=== PATIENT | male | born 1970 | race Hispanic/Latino ===

== ENCOUNTER 2017-03-29 13:47 | Inpatient (IN) | payer MEDICAID, OTHER ==
[2017-03-29 13:55] VITALS: BMI 21.2
--- NOTE | 2017-03-29 14:25 | RAD ---
HISTORY: chest pain COMPARISON: No prior. FINDINGS: LUNGS: No active pulmonary disease. PLEURA: No significant pleural effusion identified, no pneumothorax apparent. CARDIOVASCULAR: Normal. OSSEOUS STRUCTURES: No significant abnormalities. VISUALIZED UPPER ABDOMEN: Normal. OTHER FINDINGS: None. IMPRESSION: No active disease.
[2017-03-29 14:27] LABS: BASO # 0.04 K/mm3 (0.0-2.0); BASO % 0.4 % (0.0-3.0); EOS # 0.1 (0.0-0.7); GRAN # 7.06 (1.4-6.5); GRAN % 62.5 % (50.0-68.0); HEMOGLOBIN 17.7 gm/dL (14.0-18.0); LYMPH # 2.8 (1.2-3.4); LYMPH % 25.1 % (22.0-35.0); MEAN CELL VOLUME 96.5 fL (80.0-105.0); MEAN CORPUSCULAR HEMOGLOBIN 34.3 pg (25.0-35.0); MEAN CORPUSCULAR HGB CONC 35.5 g/dl (31.0-37.0); MEAN PLATELET VOLUME 10.4 fl (7.0-11.0); MONO # 1.2 (0.1-0.6); PLATELET COUNT 181 10^3/uL (120.0-450.0); RBC 5.16 10^6/uL (3.5-6.1); WHITE BLOOD COUNT 11.3 10^3/ul (4.5-11.0)
[2017-03-29 14:37] LABS: ALB/GLOB RATIO 1.2 (1.1-1.8); ALBUMIN 4.4 g/dL (3.0-4.8); ALT/SGPT 34 U/L (7-56); AST/SGOT 51 U/L (15-59); BLOOD UREA NITROGEN 9 mg/dL (7-21); CALCIUM 9.7 mg/dL (8.4-10.5); GFR AFRICAN-AMERICAN > 60; GFR NON-AFRICAN AMERICAN > 60; INR 0.96 (0.93-1.08); PARTIAL THROMBOPLASTIN TIME 27.3 Seconds (23.7-30.8); PROTHROMBIN TIME 10.4 Seconds (9.9-11.8)
--- NOTE | 2017-03-29 14:51 | ED PDOC ---
Arrival/HPI - General Chief Complaint: Chest Pain Time Seen by Provider: 03/29/17 13:55 Historian: Patient - History of Present Illness Narrative History of Present Illness (Text): 03/29/17 14:47 A 47 year old male, who denies any past medical history, presents to the emergency department complaining of non-radiating intermittent left sided chest pain for 1 week. Patient reports while visiting someone in the hospital he started to experience the same pain. He took 4 baby aspirin with no relief so came into the emergency room for further evaluation. Patient denies any fever, chills, nausea, vomiting, diarrhea, abdominal pain, shortness of breath or any other complaints. Patient has a smoking history, no cardiac history. Time/Duration: 1 week Symptom Course: Intermittent Quality: Other Context: Home Past Medical History - Provider Review Nursing Documentation Reviewed: Yes - Psychiatric Hx Substance Use: No - Surgical History Other/Comment: jaw surgery - Anesthesia Hx Anesthesia: Yes Hx Anesthesia Reactions: No Hx Malignant Hyperthermia: No Family/Social History - Physician Review Nursing Documentation Reviewed: Yes Family/Social History: No Known Family HX Smoking Status: Heavy Smoker > 10 Cigarettes Daily Hx Alcohol Use: Yes Frequency of alcohol use: Few days per week Hx Substance Use: No Allergies/Home Meds Allergies/Adverse Reactions: Allergies No Known Allergies Allergy (Verified 03/29/17 13:55) Home Medications: Home Meds Medication Instructions Recorded Confirmed Aspirin [Aspirin Chewable] 81 mg PO DAILY 03/29/17 03/29/17 Review of Systems - Physician Review All systems were reviewed & negative as marked: Yes - Review of Systems Constitutional: absent: Fevers, Night Sweats Respiratory: absent: SOB Cardiovascular: Chest Pain Gastrointestinal: absent: Abdominal Pain, Diarrhea, Nausea, Vomiting Physical Exam Vital Signs Reviewed: Yes Vital Signs Temp Pulse Resp BP Pulse Ox 03/29/17 13:55 98.2 F 77 18 135/91 H 98 Temperature: Afebrile Blood Pressure: Hypertensive Pulse: Regular Respiratory Rate: Normal Appearance: Positive for: Well-Appearing, Non-Toxic, Comfortable Pain Distress: None Mental Status: Positive for: Alert and Oriented X 3 - Systems Exam Head: Present: Atraumatic, Normocephalic Pupils: Present: PERRL Extroacular Muscles: Present: EOMI Conjunctiva: Present: Normal Mouth: Present: Moist Mucous Membranes Neck: Present: Normal Range of Motion Respiratory/Chest: Present: Clear to Auscultation, Good Air Exchange. No: Respiratory Distress, Accessory Muscle Use Cardiovascular: Present: Regular Rate and Rhythm, Normal S1, S2. No: Murmurs Abdomen: Present: Normal Bowel Sounds. No: Tenderness, Distention, Peritoneal Signs Back: Present: Normal Inspection Upper Extremity: Present: Normal Inspection. No: Cyanosis, Edema Lower Extremity: Present: Normal Inspection. No: Edema Neurological: Present: GCS=15, CN II-XII Intact, Speech Normal Skin: Present: Warm, Dry, Normal Color. No: Rashes Psychiatric: Present: Alert, Oriented x 3, Normal Insight, Normal Concentration Medical Decision Making ED Course and Treatment: 03/29/17 14:47 Impression: A 47 year old male with non-radiating intermittent left sided chest pain. Plan: -- Chest xray -- EKG -- Labs -- Urinalysis -- Reassess and disposition Progress Notes: EKG shows NSR at 71 BPM with normal axis, normal intervals, questionable ST- segment elevation in lead III. Interpreted by me. Case discussed with inspector final assembly mechanical, Dr. Quiroga, at 14:02. An electronic copy of patients EKG sent to Dr. Quiroga, who agrees no STEMI. Report Date : 03/29/2017 14:23:51 Procedure: Chest xray Dictator : Yeison Quiroga MD IMPRESSION: No active disease. - Lab Interpretations Lab Results: 03/29/17 14:00 03/29/17 14:00 Lab Results 03/29/17 15:30: Blood Type A POSITIVE, Antibody Screen Negative, BBK History Checked No verified bt 03/29/17 14:00: Sodium 138, Potassium 4.3, Chloride 103, Carbon Dioxide 25, Anion Gap 14, BUN 9, Creatinine 0.8, Est GFR ( Amer) > 60, Est GFR (Non- Af Amer) > 60, Random Glucose 110, Calcium 9.7, Magnesium 2.0, Total Bilirubin 0.6, AST 51, ALT 34, Alkaline Phosphatase 49, Lactate Dehydrogenase 467, Total Creatine Kinase 260 H, CK-MB (CK-2) 13.6 H, CK-MB (CK-2) % 5.2 H, Troponin I 1.09 H*, Total Protein 8.2, Albumin 4.4, Globulin 3.8, Albumin/Globulin Ratio 1.2 03/29/17 14:00: PT 10.4, INR 0.96, APTT 27.3 03/29/17 14:00: WBC 11.3 H, RBC 5.16, Hgb 17.7, Hct 49.8, MCV 96.5, MCH 34.3, MCHC 35.5, RDW 13.0, Plt Count 181, MPV 10.4, Gran % 62.5, Lymph % (Auto) 25.1, Woodward % (Auto) 11.0 H, Eos % (Auto) 1.0 L, Baso % (Auto) 0.4, Gran # 7.06 H, Lymph # 2.8, Woodward # 1.2 H, Eos # 0.1, Baso # 0.04 I have reviewed the lab results: Yes - RAD Interpretation Radiology Orders: 03/29/17 13:58 CHEST PORTABLE [RAD] Stat - Medication Orders Current Medication Orders: Alprazolam (Xanax) 0.25 mg PO BID PRN PRN Reason: Anxiety Stop: 04/05/17 17:01 Aspirin (Ecotrin) 81 mg PO DAILY [facility] Atorvastatin Calcium (Lipitor) 80 mg PO DIN [facility] Last Admin: 03/29/17 17:53 Dose: 80 mg Carvedilol (Coreg) 3.125 mg PO BID [facility] Last Admin: 03/29/17 17:58 Dose: 3.125 mg Clopidogrel Bisulfate (Plavix) 75 mg PO DAILY [facility] Docusate Sodium (Colace) 100 mg PO BID [facility] Last Admin: 03/29/17 17:53 Dose: 100 mg Sodium Chloride (Sodium Chloride 0.9%) 1,000 mls @ 100 mls/hr IV .Q10H [facility] Stop: 03/30/17 03:00 Last Admin: 03/29/17 17:24 Dose: 100 mls/hr Lorazepam (Ativan) 1 mg IVP Q3 PRN; Protocol PRN Reason: Anxiety Ondansetron HCl (Zofran Inj) 4 mg IV ONCE PRN PRN Reason: Nausea/Vomiting Ramipril (Altace) 1.25 mg PO DAILY [facility] Zolpidem Tartrate (Ambien) 5 mg PO HS PRN PRN Reason: Insomnia Discontinued Medications Atropine Sulfate (Atropine) Confirm Administered Dose 1 mg .ROUTE .STK-MED ONE Stop: 03/29/17 16:36 Last Admin: 03/29/17 16:35 Dose: 0.5 mg Comments: IV per Dr. Quiroga Clopidogrel Bisulfate (Plavix) 600 mg PO STAT STA Stop: 03/29/17 15:22 Last Admin: 03/29/17 15:24 Dose: 600 mg Eptifibatide (Integrilin Bolus) Confirm Administered Dose 40 mg IVP .STK-MED ONE Stop: 03/29/17 16:24 Last Admin: 03/29/17 16:24 Dose: 27.2 mg Comments: IV per Dr. Quiroga. 13.6 mg/6.8 ml x 2 doses. 1st bolus @ 1624. 2nd bolus @ 1634 Fentanyl (Fentanyl) Confirm Administered Dose 100 mcg .ROUTE .STK-MED ONE Stop: 03/29/17 16:05 Last Admin: 03/29/17 16:12 Dose: 100 mcg Comments: IV. 50 mcg @ [address] Quiroga. 50 mcg @ [address] Quiroga Heparin Sodium (Porcine) (Heparin) Confirm Administered Dose 10,000 units .ROUTE .STK-MED ONE Stop: 03/29/17 15:38 Last Admin: 03/29/17 16:19 Dose: 3,500 units Comments: [address] Quiroga @ 1619. [address] Quiroga @ 1624 Nitroglycerin/Dextrose (Nitroglycerin 50 Mg/250 Ml D5w) Confirm Administered Dose 50 mg in 250 mls @ ud IV .STK-MED ONE Stop: 03/29/17 15:39 Last Admin: 03/29/17 16:19 Dose: 0.2 mg Comments: IA by Dr. Quiroga Heparin Sodium (Porcine) (Heparin 1000 Units/500 Ml Ns) Confirm Administered Dose 1,500 mls @ ud IV .STK-MED ONE Stop: 03/29/17 15:39 Iohexol (Omnipaque 350 150 Ml) Confirm Administered Dose 150 ml .ROUTE .STK-MED ONE Stop: 03/29/17 15:38 Last Admin: 03/29/17 16:17 Dose: 150 ml Comments: During procedure Iohexol (Omnipaque 350mg/Ml 50 Ml) Confirm Administered Dose 50 ml .ROUTE .STK- MED ONE Stop: 03/29/17 16:31 Last Admin: 03/29/17 16:30 Dose: 50 ml Comments: During procedure Iohexol (Omnipaque 350 100 Ml) Confirm Administered Dose 350 mg .ROUTE .STK-MED ONE Stop: 03/29/17 16:47 Last Admin: 03/29/17 16:46 Dose: 350 mg Comments: During procedure Lidocaine HCl (Lidocaine 2% 20ml Vial) Confirm Administered Dose 20 ml .ROUTE .STK-MED ONE Stop: 03/29/17 15:38 Last Admin: 03/29/17 16:17 Dose: 0.5 ml Comments: SC Midazolam HCl (Versed Inj) Confirm Administered Dose 2 mg .ROUTE .STK-MED ONE Stop: 03/29/17 16:05 Last Admin: 03/29/17 16:12 Dose: 2 mg Comments: IV. 1 mg @ [address] Quiroga. 1 mg @ [address] Quiroga Phenylephrine HCl (Phenylephrine Inj) Confirm Administered Dose 10 mg .ROUTE .STK-MED ONE Stop: 03/29/17 16:24 Last Admin: 03/29/17 16:31 Dose: 0.1 mg Comments: IV per Dr. Quiroga Verapamil HCl (Verapamil Inj) Confirm Administered Dose 5 mg IVP .STK-MED ONE Stop: 03/29/17 15:38 Last Admin: 03/29/17 16:19 Dose: 2.5 mg Comments: IA by Dr. Quiroga - Lucy Statement The provider has reviewed the documentation as recorded by the Lucy Lira Provider Scribe Attestation: All medical record entries made by the Scribroel were at my direction and personally dictated by me. I have reviewed the chart and agree that the record accurately reflects my personal performance of the history, physical exam, medical decision making, and the department course for this patient. I have also personally directed, reviewed, and agree with the discharge instructions and disposition. Disposition/Present on Arrival - Present on Arrival Any Indicators Present on Arrival: No History of DVT/PE: No History of Uncontrolled Diabetes: No Urinary Catheter: No History of Decub. Ulcer: No History Surgical Site Infection Following: None - Disposition Have Diagnosis and Disposition been Completed?: Yes Diagnosis: NSTEMI (non-ST elevated myocardial infarction) Disposition: HOSPITALIZED Disposition Time: 15:30 Condition: SERIOUS
[2017-03-29 14:52] LABS: CK MB% 5.2 % (2.5-3.0); CK-MB 13.6 ng/mL (0.0-3.6)
[2017-03-29 14:59] LABS: TROPONIN I 1.09 ng/mL
[2017-03-29] MEDS ORDERED: Lidocaine 2% Inj (20ml) ONE (15:37)
[2017-03-29] MEDS ORDERED: Nitroglycerin 50mg in D5W 50 MG/250 ML BOTTLE IV ONE (15:38)
[2017-03-29] MEDS ORDERED: Midazolam 2 MG/2 ML VIAL ONE (16:04)
[2017-03-29] MEDS ORDERED: Eptifibatide 20 mg/10mL Inj IVP ONE (16:23)
[2017-03-29] MEDS ORDERED: Phenylephrine 10 mg/ml Inj ONE (16:23)
[2017-03-29] MEDS ORDERED: Iohexol 350mgl/ml 50 ML ONE (16:30)
[2017-03-29] MEDS ORDERED: Iohexol 350 MG/100 ML VIAL ONE (16:46)
[2017-03-29] MEDS: Sodium Chloride 0.9% 1,000 ML IV SCH (17:24)
--- NOTE | 2017-03-29 17:31 | CARD ---
APPROVED REPORT Procedure(s) performed: Left Heart Catheterization PTCA with Stenting of Proximal RCA with Maximino HISTORY The patient is a 47 year-old male with a history of : tobacco history() : The patient is a current smoker . INDICATION The indication(s) include : non-STEMI . CASE TECHNIQUE The patient was brought emergently to the Cardiac Catheterization Laboratory in a fasting state and was prepped and draped in a sterile manner. The left wrist was infiltrated with 2% Lidocaine subcutaneous anesthesia. A 6 Fr Glidesheath (Radial) sheath was inserted into the left radial artery without difficulty. Coronary angiography was performed using coronary diagnostic catheters. The left coronary system was accessed and visualized with a Diagnostic ,5 Fr JL 3.5 catheter. The right coronary system was accessed and visualized with a Diagnostic ,6 Fr JR 4 catheter. The left ventricle was accessed and visualized with a 5 Fr Pigtail 145 (Angled) catheter. Left ventriculogram was performed in [place] projection. Closure device was deployed with a Fr TR Band (Large) without any complications. The patient tolerated the procedure well and there were no complications associated with the procedure. Vessel Analysis The patient's coronary anatomy is co-dominant. The left main coronary artery is a large size vessel without significant stenosis. The left main bifurcates to the left anterior descending and circumflex. The left anterior descending artery is a medium size vessel with diffuse calcification noted throughout this vessel and without significant stenosis. The first diagonal branch is a medium size vessel with diffuse calcification noted throughout this vessel and without significant stenosis. The circumflex artery is a medium size vessel with diffuse calcification noted throughout this vessel and without significant stenosis. The first obtuse marginal branch is a large size vessel with diffuse calcification noted throughout this vessel and without significant stenosis. The left posterior descending artery is a medium size vessel with diffuse calcification noted throughout this vessel and without significant stenosis. The right coronary artery is a large size vessel with diffuse calcification noted throughout this vessel and with significant stenosis. There is a 95% stenosis in the proximal segment. The right posterior descending artery is a large size vessel with diffuse calcification noted throughout this vessel and without significant stenosis. Left Ventricle The left ventricle is borderline in size with mildly decreased contractility. Ischemic cardiomyopathy. The left ventricular ejection fraction is estimated to be 40-45%. The left ventricular end diastolic pressure is 15 mmHg. There was no gradient across the aortic valve upon pullback. PCI Technique Lesion Anticoagulation was achieved with Heparin. Percutaneous coronary intervention was performed on the proximal right coronary artery. The lesion stenosis prior to intervention was 95% with TETE 2 flow. A 6 Fr JL 3.5 Guide Catheter was used to engage the ostium. BALLOON DILATION A Balloon catheter 2.5 x 8 mm Trek RX was inserted and inflated up to 6.0atm for 14seconds. STENT DEPLOYMENT A drug-eluting stent 3.5 x 18 mm Resolute MAXIMINO was inserted and inflated up to 15.00atm for 14seconds. Second MAXIMINO 3.5/9 proximal to first one deployed at 12 atmos for 15 secod POST STENT DEPLOYMENT BALLOON DILATION A Balloon catheter 3.5 x 12 mm Trek RX NC was inserted and inflated up to 12.00atm for 13seconds. Final angiography reveals 0 % stenosis with TETE 3 flow. Conclusion Single vessel CAD involving proximal RCA. Mildly decreased LV Fx. Ef-40-45%, EDP15 mmof hg. Successful PTCA with MAXIMINO of Proximal RCA Recommendations Smoking Cessation Cardiac Rehabilitation ReferralDaily ASA with Plavix for at least one year Aggressive Medical TherapyCardiac Risk Reduction Program Weight Loss Reduction Program compliance with Meds Cc; Dr. Young.
--- NOTE | 2017-03-29 18:54 | CP.PCM.HP ---
<Karey Carrillo - Last Filed: 03/29/17 18:50> History of Present Illness - History of Present Illness History of Present Illness: This is a 47Y M with PMH anxiety and alcoholism who came to ED for L sided chest pain. Patient reports that on Wednesday night it was his birthday and he drank about 15 "florencio bombs" (1 shot of florencio + 12oz beer). The next morning he woke up and was not feeling well and was having the chills. He took several baby Aspirin. 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 He walked 8 blocks and began to feel SOB. He had to sit down. [place] got [place] [facility] ASA 325mg and took 6 pills. He felt a little better and was sitting with the patient in ICU when he started to have tightening in the back of his tongue and L sided chest pain. Patient was sent to ED where he had positive troponin and STEMI seen on EKG. Patient was immediately transferred to labeling specialist. He was found to have 95% stenosis of RCA. Patient was examined after cardiac cath. Now he reports feeling much better, denies CP, SOB, n/v/d, numbness/tingling. 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 FH: Mother side- CVA, HTN, CT (all in family members >50Y) PMD: None Insurance: Deana care/Medicaid Present on Admission - Present on Admission Any Indicators Present on Admission: No Review of Systems - Constitutional Constitutional: absent: Chills, Fever - EENT Eyes: absent: Blurred Vision, Change in Vision Nose/Mouth/Throat: absent: Dysphagia, Odynophagia, Tongue Swelling - Cardiovascular Cardiovascular: absent: Chest Pain, Dyspnea, Syncope - Respiratory Respiratory: absent: Cough, Dyspnea - Gastrointestinal Gastrointestinal: absent: Abdominal Pain, Diarrhea, Nausea, Vomiting - Genitourinary Genitourinary: absent: Dysuria, Hematuria - Musculoskeletal Musculoskeletal: absent: Arthralgias, Muscle Weakness - Integumentary Integumentary: absent: Change in Hair, Change in Nails - Neurological Neurological: absent: Syncope, Tingling, Tremor, Vertigo, Weakness - Psychiatric Psychiatric: Anxiety. absent: Depression Past Patient History - Past Social History Smoking Status: Heavy Smoker > 10 Cigarettes Daily Alcohol: > 2 Drinks/Day Drugs: Denies Home Situation {Lives}: With Family - PSYCHIATRIC Hx Substance Use: No - SURGICAL HISTORY Other/Comment: jaw surgery - ANESTHESIA Hx Anesthesia: Yes Hx Anesthesia Reactions: No Hx Malignant Hyperthermia: No Meds Allergies/Adverse Reactions: Allergies Allergy/AdvReac Type Severity Reaction Status Date / Time No Known Allergies Allergy Verified 03/29/17 13:55 Physical Exam - Constitutional Appears: No Acute Distress - Head Exam Head Exam: ATRAUMATIC, NORMAL INSPECTION, NORMOCEPHALIC - Eye Exam Eye Exam: Normal appearance, PERRL Pupil Exam: NORMAL ACCOMODATION, PERRL - ENT Exam ENT Exam: Mucous Membranes Moist - Respiratory Exam Respiratory Exam: Clear to Auscultation Bilateral, NORMAL BREATHING PATTERN. absent: Rales, Rhonchi, Wheezes - Cardiovascular Exam Cardiovascular Exam: REGULAR RHYTHM, +S1, +S2. absent: Gallop, Rubs, Systolic Murmur - GI/Abdominal Exam GI & Abdominal Exam: Normal Bowel Sounds, Soft. absent: Mass, Rebound, Rigid, Tenderness - Extremities Exam Extremities exam: Positive for: normal inspection. Negative for: calf tenderness, pedal edema Additional comments: L arterial band in place- no bleeding at site. - Neurological Exam Neurological exam: Alert, CN II-XII Intact, Normal Gait, Oriented x3 - Psychiatric Exam Psychiatric exam: Normal Affect, Normal Mood - Skin Skin Exam: Dry, Intact, Normal Color, Warm Results - Vital Signs Recent Vital Signs: Last Vital Signs Temp 98.2 F 03/29/17 13:55 Pulse 67 03/29/17 17:58 Resp 18 03/29/17 13:55 BP 119/65 03/29/17 17:58 Pulse Ox 98 03/29/17 13:55 - Labs Result Diagrams: 03/29/17 14:00 03/29/17 14:00 Assessment & Plan - Assessment and Plan (Free Text) Assessment: This is a 47Y M with PMH anxiety and alcoholism admitted for STEMI with 95% proximal stenosis in RCA with 2 stents placed. Plan: 1. STEMI - 2 stents placed in RCA - ASA, Lipitor, Plavix (Will need to be on ASA and Plavix for at least 1 yr) - Coreg, Ramipril - Cardio consulted- recs appreciated - Continue to monitor cath site for bleeding - Lipid panel, TSH, HgbA1c - Cath showed EF 40-45%, Echo ordered 2. Alcoholism - Counseled on alcohol cessation - CIWA protocol - Ativan prn - UDS and alcohol level pending 3. Tobacco use - Counseled on smoking cessation 4. Hx of Anxiety - Xanax prn Gi ppx: Protonix DVT ppx: SCDs Case seen, reviewed, discussed with attending Jason Carrillo PGY2 - Date & Time Date: 03/29/17 Time: 19:17 <Domenic Young - Last Filed: 03/30/17 16:54> Results - Vital Signs Recent Vital Signs: Last Vital Signs Temp 98.1 F 03/30/17 11:34 Pulse 49 L 03/30/17 11:34 Resp 20 03/30/17 11:34 BP 107/71 03/30/17 11:34 Pulse Ox 98 03/30/17 09:00 - Labs Result Diagrams: 03/30/17 06:30 03/30/17 06:30 Labs: Laboratory Results - last 24 hr 03/29/17 03/29/17 03/29/17 20:00 20:00 20:00 WBC 10.5 RBC 4.85 Hgb 16.5 Hct 46.8 MCV 96.5 MCH 34.0 MCHC 35.3 RDW 13.0 Plt Count 141 MPV 10.1 Gran % 56.0 Lymph % (Auto) 33.7 [place] % (Auto) 8.9 H Eos % (Auto) 1.2 L Baso % (Auto) 0.2 Gran # 5.89 Lymph # 3.6 H [place] # 0.9 H Eos # 0.1 Baso # 0.02 Sodium 137 Potassium 3.9 Chloride 105 Carbon Dioxide 24 Anion Gap 12 BUN 9 Creatinine 0.7 Est GFR ( Amer) > 60 Est GFR (Non-Af Amer) > 60 Random Glucose 97 Hemoglobin A1c Calcium 8.9 Phosphorus Magnesium Total Bilirubin AST ALT Alkaline Phosphatase Lactate Dehydrogenase 525 Total Creatine Kinase 494 H CK-MB (CK-2) 38.0 H CK-MB (CK-2) % 7.7 H Troponin I 12.90 H* D Total Protein Albumin Globulin Albumin/Globulin Ratio Triglycerides Cholesterol LDL Cholesterol Direct HDL Cholesterol TSH 3rd Generation Urine Color Urine Appearance Urine pH Ur Specific [place] Urine Protein Urine Glucose (UA) Urine Ketones Urine Blood Urine Nitrate Urine Bilirubin Urine Urobilinogen Ur Leukocyte Esterase Urine Opiates Screen Urine Methadone Screen Ur Barbiturates Screen Ur Phencyclidine Scrn Ur Amphetamines Screen U Benzodiazepines Scrn U Oth Cocaine Metabols U Cannabinoids Screen Alcohol, Quantitative < 10 03/30/17 03/30/17 03/30/17 06:30 06:30 06:30 WBC RBC Hgb Hct MCV MCH MCHC RDW Plt Count MPV Gran % Lymph % (Auto) [place] % (Auto) Eos % (Auto) Baso % (Auto) Gran # Lymph # [place] # Eos # Baso # Sodium 138 Potassium 4.2 Chloride 107 Carbon Dioxide 23 Anion Gap 12 BUN 11 Creatinine 0.7 Est GFR ( Amer) > 60 Est GFR (Non-Af Amer) > 60 Random Glucose 93 Hemoglobin A1c 5.4 Calcium 8.8 Phosphorus 3.9 Magnesium 1.9 Total Bilirubin 0.8 AST 56 ALT 32 Alkaline Phosphatase 43 Lactate Dehydrogenase Total Creatine Kinase CK-MB (CK-2) CK-MB (CK-2) % Troponin I Total Protein 6.9 Albumin 3.6 Globulin 3.3 Albumin/Globulin Ratio 1.1 Triglycerides 142 Cholesterol 188 LDL Cholesterol Direct 131 H HDL Cholesterol 45 TSH 3rd Generation 7.73 H Urine Color Urine Appearance Urine pH Ur Specific [place] Urine Protein Urine Glucose (UA) Urine Ketones Urine Blood Urine Nitrate Urine Bilirubin Urine Urobilinogen Ur Leukocyte Esterase Urine Opiates Screen Urine Methadone Screen Ur Barbiturates Screen Ur Phencyclidine Scrn Ur Amphetamines Screen U Benzodiazepines Scrn U Oth Cocaine Metabols U Cannabinoids Screen Alcohol, Quantitative 03/30/17 03/30/17 03/30/17 06:30 06:30 08:00 WBC 8.4 RBC 4.65 Hgb 15.6 Hct 45.2 MCV 97.2 MCH 33.5 MCHC 34.5 RDW 13.3 Plt Count 144 MPV 9.8 Gran % 48.3 L Lymph % (Auto) 35.6 H [place] % (Auto) 13.6 H Eos % (Auto) 2.3 Baso % (Auto) 0.2 Gran # 4.03 Lymph # 3.0 [place] # 1.1 H Eos # 0.2 Baso # 0.02 Sodium Potassium Chloride Carbon Dioxide Anion Gap BUN Creatinine Est GFR ( Amer) Est GFR (Non-Af Amer) Random Glucose Hemoglobin A1c Calcium Phosphorus Magnesium Total Bilirubin AST ALT Alkaline Phosphatase Lactate Dehydrogenase 481 Total Creatine Kinase 331 H CK-MB (CK-2) 18.8 H CK-MB (CK-2) % 5.7 H Troponin I 5.01 H* D Total Protein Albumin Globulin Albumin/Globulin Ratio Triglycerides Cholesterol LDL Cholesterol Direct HDL Cholesterol TSH 3rd Generation Urine Color Yellow Urine Appearance Clear Urine pH 6.0 Ur Specific [place] 1.010 Urine Protein Negative Urine Glucose (UA) Negative Urine Ketones Negative Urine Blood Negative Urine Nitrate Negative Urine Bilirubin Negative Urine Urobilinogen 0.2 Ur Leukocyte Esterase Negative Urine Opiates Screen Urine Methadone Screen Ur Barbiturates Screen Ur Phencyclidine Scrn Ur Amphetamines Screen U Benzodiazepines Scrn U Oth Cocaine Metabols U Cannabinoids Screen Alcohol, Quantitative 03/30/17 08:10 WBC RBC Hgb Hct MCV MCH MCHC RDW Plt Count MPV Gran % Lymph % (Auto) [place] % (Auto) Eos % (Auto) Baso % (Auto) Gran # Lymph # [place] # Eos # Baso # Sodium Potassium Chloride Carbon Dioxide Anion Gap BUN Creatinine Est GFR ( Amer) Est GFR (Non-Af Amer) Random Glucose Hemoglobin A1c Calcium Phosphorus Magnesium Total Bilirubin AST ALT Alkaline Phosphatase Lactate Dehydrogenase Total Creatine Kinase CK-MB (CK-2) CK-MB (CK-2) % Troponin I Total Protein Albumin Globulin Albumin/Globulin Ratio Triglycerides Cholesterol LDL Cholesterol Direct HDL Cholesterol TSH 3rd Generation Urine Color Urine Appearance Urine pH Ur Specific [place] Urine Protein Urine Glucose (UA) Urine Ketones Urine Blood Urine Nitrate Urine Bilirubin Urine Urobilinogen Ur Leukocyte Esterase Urine Opiates Screen Negative Urine Methadone Screen Negative Ur Barbiturates Screen Negative Ur Phencyclidine Scrn Negative Ur Amphetamines Screen Negative U Benzodiazepines Scrn Positive H U Oth Cocaine Metabols Negative U Cannabinoids Screen Negative Alcohol, Quantitative Attending/Attestation - Attestation I have personally seen and examined this patient.: Yes I have fully participated in the care of the patient.: Yes I have reviewed all pertinent clinical information: Yes Notes (Text): 03/30/17 16:52 attending note; Patient seen and examined With resident in room 273. patient is a 47-year-old male with a past medical history of smoking, alcohol abuse, drug abuse, not on any medications is admitted with chest pain and ST elevation CT. Status post cardiac cath and stent placement by Dr. Quiroga. Continue aspirin, Plavix, metoprolol, lisinopril. Active smoking; smoking cessation is strongly advised. Alcohol abuse; alcohol cessation is strongly advised. Patient is advised to apply for deana care. Patient can follow[place] with [facility] [place] upon discharge. The diagnosis, follow-up plan and medication compliance educated in detail.
[2017-03-29 20:18] LABS: BASO # 0.02 K/mm3 (0.0-2.0); BASO % 0.2 % (0.0-3.0); EOS # 0.1 (0.0-0.7); EOS % 1.2 % (1.5-5.0); GRAN # 5.89 (1.4-6.5); HEMOGLOBIN 16.5 gm/dL (14.0-18.0); LYMPH # 3.6 (1.2-3.4); LYMPH % 33.7 % (22.0-35.0); MEAN CELL VOLUME 96.5 fL (80.0-105.0); MEAN CORPUSCULAR HGB CONC 35.3 g/dl (31.0-37.0); MEAN PLATELET VOLUME 10.1 fl (7.0-11.0); MONO # 0.9 (0.1-0.6); MONO % 8.9 % (1.0-6.0); PLATELET COUNT 141 10^3/uL (120.0-450.0); RBC 4.85 10^6/uL (3.5-6.1); WHITE BLOOD COUNT 10.5 10^3/ul (4.5-11.0)
[2017-03-29 20:26] LABS: BLOOD UREA NITROGEN 9 mg/dL (7-21); CALCIUM 8.9 mg/dL (8.4-10.5); GFR AFRICAN-AMERICAN > 60; GFR NON-AFRICAN AMERICAN > 60
--- NOTE | 2017-03-29 20:45 | CARD ---
APPROVED REPORT EKG Measurement Heart [id number] <Conclusion> Normal sinus rhythm Inferior infarct, possibly acute ACUTE AR Consider right ventricular involvement in acute inferior infarct Abnormal ECG
[2017-03-29] MEDS ORDERED: Pneumococcal 23-Valent Vaccine IM ONE (22:58)
[2017-03-30] MEDS: Sodium Chloride 0.9% 1,000 ML IV SCH (03:00)
[2017-03-30] MEDS ORDERED: Pantoprazole 40 mg EC Tab PO SCH (06:00)
[2017-03-30 06:57] LABS: BASO # 0.02 K/mm3 (0.0-2.0); BASO % 0.2 % (0.0-3.0); EOS # 0.2 (0.0-0.7); EOS % 2.3 % (1.5-5.0); GRAN # 4.03 (1.4-6.5); GRAN % 48.3 % (50.0-68.0); HEMOGLOBIN 15.6 gm/dL (14.0-18.0); LYMPH % 35.6 % (22.0-35.0); MEAN CELL VOLUME 97.2 fL (80.0-105.0); MEAN CORPUSCULAR HEMOGLOBIN 33.5 pg (25.0-35.0); MEAN CORPUSCULAR HGB CONC 34.5 g/dl (31.0-37.0); MEAN PLATELET VOLUME 9.8 fl (7.0-11.0); MONO # 1.1 (0.1-0.6); MONO % 13.6 % (1.0-6.0); PLATELET COUNT 144 10^3/uL (120.0-450.0); RBC 4.65 10^6/uL (3.5-6.1); RED CELL DISTRIBUTION WIDTH 13.3 % (11.5-14.5); WHITE BLOOD COUNT 8.4 10^3/ul (4.5-11.0)
[2017-03-30 07:16] LABS: ALB/GLOB RATIO 1.1 (1.1-1.8); ALBUMIN 3.6 g/dL (3.0-4.8); ALT/SGPT 32 U/L (7-56); AST/SGOT 56 U/L (15-59); BLOOD UREA NITROGEN 11 mg/dL (7-21); CALCIUM 8.8 mg/dL (8.4-10.5); GFR AFRICAN-AMERICAN > 60; GFR NON-AFRICAN AMERICAN > 60; HDL CHOLESTEROL 45 mg/dL (29-60); MAGNESIUM 1.9 mg/dL (1.7-2.2)
[2017-03-30 07:29] LABS: LDL CHOLESTEROL 131 mg/dL (0-129)
[2017-03-30 08:02] LABS: CK MB% 5.7 % (2.5-3.0); CK-MB 18.8 ng/mL (0.0-3.6)
[2017-03-30 08:16] LABS: URINE APPEARANCE CLEAR (CLEAR); URINE BILIRUBIN NEGATIVE (NEGATIVE); URINE BLOOD NEGATIVE (NEGATIVE); URINE COLOR YELLOW (YELLOW); URINE GLUCOSE (UA) NEGATIVE (NEGATIVE); URINE LEUKOCYTE ESTERASE NEGATIVE Leu/uL (NEGATIVE); URINE NITRATE NEGATIVE (NEGATIVE); URINE PROTEIN NEGATIVE mg/dL (<30 mg/dL); URINE UROBILINOGEN 0.2 E.U./dL (<1 E.U./dL)
[2017-03-30 08:17] LABS: CK MB% 7.7 % (2.5-3.0)
--- NOTE | 2017-03-30 08:39 | CON ---
DATE: 03/29/2017 CONSULT SERVICE: Cardiology. REFERRING PHYSICIAN: Junaid Albert MD REASON FOR CONSULTATION: Cardiac evaluation, chest pain, positive troponin, and abnormal EKG. BRIEF CLINICAL SUMMARY: The patient is a 47-year-old active tobacco abuse, a strong family history of coronary artery disease, who was having chest pain for 2 weeks. Last Wednesday, the patient broke into sweat, washed his mouth with and took 4 aspirin and then he passed out for five hours, woke up, and chest pain is gone. Since then, the patient is noting the chest pain this morning, the patient has off and on chest pain, took four 325 mg of aspirin and came to the emergency room. Emergency room EKG shows a 0.[address]-elevation, but no acute ST-elevation in that lead and no reciprocal changes noted. Troponin came out positive 1.09. The patient want to sign out AMA. A lengthy discussion done with the patient and the patient agreed for cardiac catheterization, but asked to go after the cardiac catheterization stent at home because have to take care something very important. After lengthy discussion again, patient agreed to stay with his lady friend who try to convince her as well. Denies any chest pain now, he feels completely chest pain free. PAST MEDICAL HISTORY: Significant for chest pain off and on for 2 weeks, duration prior to that, the patient has no history of chest pain. SOCIAL HISTORY: Active tobacco abuse. Denies any history of alcohol abuse. Denies any history of substance abuse. FAMILY HISTORY: Significant for coronary artery disease. CURRENT MEDICATIONS: Except off and on taken aspirin. REVIEW OF SYSTEMS: As per HPI. PHYSICAL EXAMINATION: VITAL SIGNS: As follows; temperature afebrile, heart rate 77, and blood pressure 135/91, HEENT: PERRLA intact. NECK: Supple. No carotid bruit or thyromegaly. CHEST: Clear to auscultation, HEART: S1 and S2 regular. ABDOMEN: Soft. EXTREMITIES: Clubbing or cyanosis negative. LABORATORY DATA: Blood work up as follows; WBC 11.2, hemoglobin 17.2, hematocrit 49.8, and platelets count 181. Chemistry shows sodium 130, potassium 4.3, chloride 103, carbon dioxide 25, anion gap of 14, BUN 9, and creatinine 0.8. Troponin 1.09, EKG shows normal ST-elevation in inferior lead II, III, 0.5 mm is more like J-point elevation, T-inversion in lead aVL noted. IMPRESSION AND PLAN: Acute coronary syndrome, tobacco abuse, family history of coronary artery disease, discussed with the patient and ultimately patient agreed for cardiac catheterization and staying here. We will load the Plavix and take him on an emergent basis for cardiac catheterization, and further recommendation after the cardiac catheterization will follow with you, Discussed with his girlfriend of the patient, explained the patient's condition, she tried to convince the patient, and the patient agreeable and proceeded for cardiac catheterization, further recommendation after cardiac catheterization . Thank you Dr. Young for the opportunity in taking care of the patient, Osvaldo Fairbanks. Bety Quiroga MD cc: Domenic Young MD
[2017-03-30 08:44] LABS: TROPONIN I 5.01 ng/mL
[2017-03-30 10:15] LABS: BARBITURATES, UR NEGATIVE (NEGATIVE); BENZODIAZEPINES, UR POSITIVE (NEGATIVE); OPIATES, UR NEGATIVE (NEGATIVE); PHENCYCLIDINE, UR NEGATIVE (NEGATIVE)
[2017-03-30 10:40] VITALS: O2SAT 98
[2017-03-30 11:34] VITALS: BP 107/71; RESP 20; TEMP 98.1
--- NOTE | 2017-03-30 14:19 | PN ---
DATE: 03/30/2017 REASON FOR CONSULTATION: Acute coronary syndrome, unstable angina, non-ST segment myocardial infarction, status post cardiac angioplasty. BRIEF CLINICAL HISTORY: A 47-year-old male, active tobacco abuse, questionably substance abuse, admitted with angina for 1 to 2 weeks; underwent cardiac catheterization that revealed 95% RCA, status post drug-eluting stent and feels better, denies any chest pain, walking on the floor, though the patient is noncompliant it appears and a small hematoma noted on the left wrist in the middle of the forearm. Denies any chest pain, shortness of breath. Denies any pain at the wrist. Good distal pulse. PHYSICAL EXAMINATION: As follows; VITAL SIGNS: Temperature afebrile, heart rate 70, blood pressure 105/62. HEENT: PERRLA. Extraocular movements are intact. NECK: Supple. No carotid bruit or thyromegaly. CHEST: Clear to auscultation. HEART: S1 and S2 regular. ABDOMEN: Soft. EXTREMITIES: Clubbing or cyanosis negative. LABORATORY DATA: Blood workup as follows: WBC 8.5, hemoglobin 15.6, hematocrit 45.2, platelet count 144. Chemistry showed sodium 138, potassium 4.2, chloride 107, carbon dioxide 23, anion gap of 4, BUN 11, creatinine 0.7; troponin 1.09 on admission, after angioplasty went up to 12.9 and today it is trending down to 1.01. TSH 7.73. Total cholesterol 188; LDL 131, HDL 45. IMPRESSION: 1. Hyperlipidemia. 2. Non-ST segment myocardial infarction. 3. Hypothyroidism. 4. Tobacco abuse. 5. Questionable substance abuse. RECOMMENDATION: Complete cessation of smoking, emphasis on compliance with medication, continue aspirin, Plavix, mandatory for 1 year *------* extended period at that time. Continue Coreg low dose; continue SARA inhibitors and continue atorvastatin. We will add low dose of Synthroid, we will get echo. I also suggested nursing taking care of the patient *------* possible discharge today. We will discuss with Dr. Young. Emphasis also made to the patient for the compliance of the medication. Explained that if he takes aspirin and Plavix, he can get massive ID, can be very devastating and 30% of the patient cannot make to the hospital. Thank you Dr. Young for providing the opportunity in taking care of the patient. Bety Quiroga MD
[2017-03-30 16:53] VITALS: PULSE 68
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
--- NOTE | 2017-03-30 19:25 | CARD ---
APPROVED REPORT EKG Measurement Heart [id number] <Conclusion> Sinus bradycardia Possible Inferior infarct, age undetermined Abnormal ECG
[2017-03-31] MEDS ORDERED: Levothyroxine 25 MCG TAB PO SCH (06:00)
== END 2017-03-30 16:53 | disposition home or self-care (01) | DRG 247 ==
LOC: ED 13:47 → CATH 15:42 → 2RSO 17:40
PROVIDERS: ADMIT Internal Medicine; ATTEND Internal Medicine
PROC: 027035Z Dilation of Coronary Artery, One Artery with Two Drug-eluting Intraluminal Devices, Percutaneous Approach (ICD-10-PCS; principal; 2017-03-29)
PROC: 4A023N7 Measurement of Cardiac Sampling and Pressure, Left Heart, Percutaneous Approach (ICD-10-PCS; 2017-03-29)
PROC: B2111ZZ Fluoroscopy of Multiple Coronary Arteries using Low Osmolar Contrast (ICD-10-PCS; 2017-03-29)
PROC: B2151ZZ Fluoroscopy of Left Heart using Low Osmolar Contrast (ICD-10-PCS; 2017-03-29)
DX: I21.4 Non-ST elevation (NSTEMI) myocardial infarction (principal); E03.9 Hypothyroidism, unspecified; E78.5 Hyperlipidemia, unspecified; F41.9 Anxiety disorder, unspecified; I25.110 Atherosclerotic heart disease of native coronary artery with unstable angina pectoris; F10.20 Alcohol dependence, uncomplicated; F17.290 Nicotine dependence, other tobacco product, uncomplicated; Z82.49 Family history of ischemic heart disease and other diseases of the circulatory system; Z82.3 Family history of stroke; F17.210 Nicotine dependence, cigarettes, uncomplicated; Y90.0 Blood alcohol level of less than 20 mg/100 ml; Z79.82 Long term (current) use of aspirin; I25.5 Ischemic cardiomyopathy; Z91.19 Patient's noncompliance with other medical treatment and regimen

== ENCOUNTER 2017-10-18 16:17 | Emergency (ER) | payer SELFPAY ==
[2017-10-18 16:24] VITALS: BMI 22.1
[2017-10-18 16:27] VITALS: TEMP 98.2
[2017-10-18] MEDS ORDERED: Nitroglycerin 2% Ointment Foilpak UD TOP STA (16:31)
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
[2017-10-18 17:09] LABS: BASO # 0.02 K/mm3 (0.0-2.0); BASO % 0.2 % (0.0-3.0); EOS # 0.2 (0.0-0.7); EOS % 2.4 % (1.5-5.0); GRAN # 4.64 (1.4-6.5); GRAN % 53.3 % (50.0-68.0); HEMOGLOBIN 14.9 g/dL (14.0-18.0); LYMPH # 2.9 (1.2-3.4); LYMPH % 33.5 % (22.0-35.0); MEAN CELL VOLUME 96.5 fl (80.0-105.0); MEAN CORPUSCULAR HEMOGLOBIN 32.9 pg (25.0-35.0); MEAN CORPUSCULAR HGB CONC 34.1 g/dl (31.0-37.0); MEAN PLATELET VOLUME 10.2 fl (7.0-11.0); MONO # 0.9 (0.1-0.6); MONO % 10.6 % (1.0-6.0); RBC 4.53 10^6/uL (3.5-6.1); RED CELL DISTRIBUTION WIDTH 12.5 % (11.5-14.5); WHITE BLOOD COUNT 8.7 10^3/ul (4.5-11.0)
[2017-10-18 17:21] LABS: ALB/GLOB RATIO 1.2 (1.1-1.8); ALBUMIN 4.2 g/dL (3.0-4.8); ALT/SGPT 37 U/L (7-56); AST/SGOT 44 U/L (17-59); BLOOD UREA NITROGEN 12 mg/dL (7-21); CALCIUM 10.1 mg/dL (8.4-10.5); GFR AFRICAN-AMERICAN > 60; GFR NON-AFRICAN AMERICAN > 60
--- NOTE | 2017-10-18 17:28 | RAD ---
HISTORY: Chest pain COMPARISON: 03/29/2017. FINDINGS: LUNGS: No active pulmonary disease. PLEURA: No significant pleural effusion identified, no pneumothorax apparent. CARDIOVASCULAR: Normal. OSSEOUS STRUCTURES: No significant abnormalities. VISUALIZED UPPER ABDOMEN: Normal. OTHER FINDINGS: None. IMPRESSION: No active disease. No significant interval change compared to the prior examination(s).
[2017-10-18 17:29] LABS: PARTIAL THROMBOPLASTIN TIME 31.3 Seconds (25.1-36.5); PROTHROMBIN TIME 11.5 SECONDS (9.4-12.5)
[2017-10-18 17:32] LABS: TROPONIN I < 0.01 ng/mL
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
--- NOTE | 2017-10-18 17:50 | CARD ---
APPROVED REPORT EKG Measurement Heart [id number] <Conclusion> Normal sinus rhythm Normal ECG
[2017-10-18 18:36] VITALS: BP 135/87; PULSE 70; RESP 16; O2SAT 100
== END 2017-10-18 18:33 | disposition left against medical advice (07) ==
LOC: ED 16:17 → UNDOADMOB 17:36 → ERH 17:36 → ED 18:33
DX: R07.9 Chest pain, unspecified (principal); F17.210 Nicotine dependence, cigarettes, uncomplicated; I10 Essential (primary) hypertension; I25.2 Old myocardial infarction